=== PATIENT | female | born 1960 | race Caucasian/White ===

== ENCOUNTER 2017-05-06 01:25 | Emergency (ER) | payer BC ==
[~2017-05-06] VITALS: Ht 167.6 cm; Wt 70.0 kg
[2017-05-06 01:28] VITALS: BP 124/90; PULSE 83; RESP 22; TEMP 98.4; O2SAT 97
[2017-05-06 01:39] VITALS: BP 117/69; PULSE 83; RESP 18; O2SAT 97
[2017-05-06] MEDS ORDERED: diphenhydrAMINE HCL 50 MG/ML VIAL IV PUSH ONE (01:45)
[2017-05-06] MEDS ORDERED: methylPREDNISolone SOD SUCC 125 MG/2 ML VIAL IV PUSH ONE (01:45)
[2017-05-06] MEDS ORDERED: RESP: ALBUTEROL 2.5 MG/IPRATROPIUM 0.5 MG NEB (SCH) NEB ONE (01:45)
[2017-05-06] MEDS ORDERED: LINA145C PO (01:47)
[2017-05-06] MEDS ORDERED: DULE100A INH (01:47)
[2017-05-06] MEDS ORDERED: VENTAER INH (01:47)
[2017-05-06] MEDS ORDERED: PANT20TA2 PO (01:48)
[2017-05-06 02:15] LABS: AUTOMATED NEUTROPHIL # 2.4 TH/MM3 (1.8-7.7); BASOPHIL # 0.1 TH/MM3 (0-0.2); BASOPHIL % 1.1 % (0.0-2.0); EOSINOPHIL # 0.2 TH/MM3 (0-0.4); HEMO FLAGS DIFF FINAL; LYMPH % 40.7 % (9.0-44.0); LYMPHOCYTE # 2.2 TH/MM3 (1.0-4.8); MEAN CELL VOLUME 84.4 FL (80.0-100.0); MEAN CORPUSCULAR HGB CONC 33.2 % (32.0-36.0); MONO % 10.5 % (0.0-8.0); NEUT % 44.7 % (16.0-70.0); PLATELET COUNT 337 TH/MM3 (150-450); RED BLOOD COUNT 4.14 MIL/MM3 (4.00-5.30); RED CELL DISTRIBUTION WIDTH 14.5 % (11.6-17.2); WHITE BLOOD COUNT 5.5 TH/MM3 (4.0-11.0)
[2017-05-06 02:40] LABS: ALKALINE PHOSPHATASE 70 U/L (45-117); ALT (GPT) 30 U/L (10-53); TOTAL BILIRUBIN ADULT 0.2 MG/DL (0.2-1.0)
[2017-05-06 02:43] LABS: ANION GAP 8 MEQ/L (5-15); AST (GOT) 32 U/L (15-37); BICARBONATE 27.9 MEQ/L (21.0-32.0); BLOOD UREA NITROGEN 8 MG/DL (7-18); CHLORIDE 107 MEQ/L (98-107); GLOMERULAR FILTRATION RATE 72 ML/MIN (>89); SODIUM (NA) 143 MEQ/L (136-145)
[2017-05-06] MEDS ORDERED: PRED50 PO (03:31)
--- NOTE | 2017-05-06 03:31 | PD ---
HPI Chief Complaint: Allergic/Adverse Reaction Time Seen by Provider: 01:33 Travel History International Travel<30 days: No Contact w/Intl Traveler<30days: No Traveled to known affect area: No History of Present Illness HPI Patient is a 56 year old female who comes in complaining of itching and a sore throat. She says this morning she noted several bug bites all over her body. She says they have been uncontrollable itching her. She says this evening it seemed to get worse and she felt like her throat was on fire. She denies any difficulty breathing. She says she is worried that her COPD might be acting up. She has been taking Benadryl for the itching without much relief. She denies any fever or chills. 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) Tetanus Vaccination: < 5 Years Influenza Vaccination: No ?: Not Past Surgical History Appendectomy: Yes (2009) Cholecystectomy: Yes (2009) Hysterectomy: Yes (2010) Social History Alcohol Use: No Tobacco Use: No Substance Use: No Allergies-Medications (Allergen,Severity, Reaction): Coded Allergies: Penicillin (Verified Allergy, Unknown, 05/06/17) Toradol (Verified Allergy, Unknown, 05/06/17) Reported Meds & Prescriptions Reported Meds & Active Scripts Active Prednisone 50 Mg Tab 50 Mg PO DAILY 3 Days Reported Pantoprazole (Pantoprazole Sodium) 20 Mg Tab 20 Mg PO DAILY Ventolin Hfa 18 GM Inh (Albuterol Sulfate) 90 Mcg/Act Aer 1 Puff INH Q4H PRN Dulera 120 Act Inh (Mometasone-Formoterol 120 Act Inh) 100-5 Mcg/Act Inh 2 Puff INH BID Linzess (Linaclotide) 145 Mcg Cap 145 Mcg PO DAILY Review of Systems Except as stated in HPI: all other systems reviewed are Neg General / Constitutional: No: Fever, Chills HENT: Positive: Sore Throat, No: Headaches, Lightheadedness Cardiovascular: No: Chest Pain or Discomfort Respiratory: Positive: Cough, No: Shortness of Breath Gastrointestinal: No: Nausea, Vomiting Musculoskeletal: No: Myalgias Skin: Positive Itching Neurologic: No: Weakness, Dizziness Physical Exam Narrative GENERAL: Awake and alert, in no acute distress. SKIN: Focused skin assessment warm/dry. Several insect bites on the extremities , no signs of infection. HEAD: Atraumatic. Normocephalic. EYES: Pupils equal and round. No scleral icterus. ENT: Mucous membranes pink and moist. No tongue swelling, no uvular swelling, no pharyngeal swelling. No tonsillar swelling or exudates. NECK: Trachea midline. No JVD. CARDIOVASCULAR: Regular rate and rhythm. No murmur appreciated. RESPIRATORY: No accessory muscle use. Clear to auscultation. Breath sounds equal bilaterally. MUSCULOSKELETAL: No obvious deformities. No clubbing. No cyanosis. No edema. NEUROLOGICAL: Awake and alert. No obvious cranial nerve deficits. Motor grossly within normal limits. Normal speech. PSYCHIATRIC: Appropriate mood and affect; insight and judgment normal. Data Data Last Documented VS Vital Signs Date Time Temp Pulse Resp B/P Pulse Ox O2 Delivery O2 Flow Rate FiO2 05/06/17 03:58 72 18 100/62 96 Room Air 05/06/17 01:28 98.4 Orders Complete Blood Count With Diff (05/06/17 01:42) Comprehensive Metabolic Panel (05/06/17 01:42) Iv Access Insert/Monitor (05/06/17 01:42) Diphenhydramine Inj (Benadryl Inj) (05/06/17 01:45) Methylprednisolone So Succ Inj (Solumedr (05/06/17 01:45) Albuterol-Ipratropium Neb (Duoneb Neb) (05/06/17 01:45) Labs Laboratory Tests Test 05/06/17 01:58 White Blood Count 5.5 TH/MM3 Red Blood Count 4.14 MIL/MM3 Hemoglobin 11.6 GM/DL Hematocrit 35.0 % Mean Corpuscular Volume 84.4 FL Mean Corpuscular Hemoglobin 28.0 PG Mean Corpuscular Hemoglobin 33.2 % Concent Red Cell Distribution Width 14.5 % Platelet Count 337 TH/MM3 Mean Platelet Volume 7.5 FL Neutrophils (%) (Auto) 44.7 % Lymphocytes (%) (Auto) 40.7 % Monocytes (%) (Auto) 10.5 % Eosinophils (%) (Auto) 3.0 % Basophils (%) (Auto) 1.1 % Neutrophils # (Auto) 2.4 TH/MM3 Lymphocytes # (Auto) 2.2 TH/MM3 Monocytes # (Auto) 0.6 TH/MM3 Eosinophils # (Auto) 0.2 TH/MM3 Basophils # (Auto) 0.1 TH/MM3 CBC Comment DIFF FINAL Differential Comment Sodium Level 143 MEQ/L Potassium Level 4.0 MEQ/L Chloride Level 107 MEQ/L Carbon Dioxide Level 27.9 MEQ/L Anion Gap 8 MEQ/L Blood Urea Nitrogen 8 MG/DL Creatinine 0.83 MG/DL Estimat Glomerular Filtration 72 ML/MIN Rate Random Glucose 94 MG/DL Calcium Level 9.0 MG/DL Total Bilirubin 0.2 MG/DL Aspartate Amino Transf 32 U/L (AST/SGOT) Alanine Aminotransferase 30 U/L (ALT/SGPT) Alkaline Phosphatase 70 U/L Total Protein 7.3 GM/DL Albumin 3.6 GM/DL [place] Medical Decision Making Medical Screen Exam Complete: Yes Emergency Medical Condition: Yes Differential Diagnosis Allergic reaction versus anxiety versus mosquito bites Narrative Course Patient is a 56 year old female who comes in complaining of itching and sore throat. Exam shows no swelling of the airway, there are insect bites on the extremities. IV established, labs sent. Given Benadryl and solumedrol as well as one duoneb. Labs show no acute abnormalities. She reports feeling better after medication. She will be discharged with a short course of steroids. Advised to continue using Benadryl as needed for itching. Advised to follow up with a primary care physician. Advised to return to the ED as needed for any worsening symptoms. Diagnosis Primary Impression: Allergic reaction Qualified Code: T78.40XA - Allergic reaction, initial encounter Additional Impression: Insect bites Qualified Code: W57.XXXA - Insect bites, initial encounter Patient Instructions: General Allergic Reaction (ED), General Instructions, Insect Bite or Sting (ED) Additional Instructions: Start the steroids tomorrow as you already took a dose today. Take Benadryl as needed for any itching. Follow up with a primary care doctor. Return to the ED as needed for any worsening symptoms. Scripts Prednisone 50 Mg Tab50 Mg PO DAILY 3 Days Ref 0 Prov:Sarah Regalado MD 05/06/17 Disposition: 01 DISCHARGE HOME Condition: Stable Sarah Regalado MD May 06, 2017 03:31
[2017-05-06 03:58] VITALS: BP 100/62; PULSE 72; RESP 18; O2SAT 96
== END 2017-05-06 04:19 | disposition home or self-care (01) ==
LOC: NEPE 01:25
DX: T78.40XA Allergy, unspecified, initial encounter (principal); J02.9 Acute pharyngitis, unspecified; S40.862A Insect bite (nonvenomous) of left upper arm, initial encounter; S40.861A Insect bite (nonvenomous) of right upper arm, initial encounter; S80.862A Insect bite (nonvenomous), left lower leg, initial encounter; S80.861A Insect bite (nonvenomous), right lower leg, initial encounter; F41.9 Anxiety disorder, unspecified; J44.9 Chronic obstructive pulmonary disease, unspecified; W57.XXXA Bitten or stung by nonvenomous insect and other nonvenomous arthropods, initial encounter
CPT/HCPCS: 80053; 85025; 94664; 96374; 96375; 99284; J1200; J2930